=== PATIENT | male | born 1940 | race Caucasian/White ===

== ENCOUNTER 2021-03-31 08:42 | Outpatient (CLI) | payer MEDICARE | END 2021-03-31 08:43 | disposition home or self-care (01) | LOC: CSHMRI 08:42 | PROVIDERS: ATTEND Psychiatry & Neurology Neurology | DX: R41.3 Other amnesia (principal); M47.896 Other spondylosis, lumbar region; R90.82 White matter disease, unspecified; G93.9 Disorder of brain, unspecified; M48.061 Spinal stenosis, lumbar region without neurogenic claudication | CPT/HCPCS: 70551; 72148 ==

== ENCOUNTER 2025-01-16 07:15 | Emergency (ER) | payer OTHER ==
[2025-01-16 08:43] LABS: #Basophils 0.03 10x3/uL (0.0-0.2); #Eosinophils 0.09 10x3/uL (0.0-0.5); #Monocytes 0.39 10x3/uL (0.0-1.1); #Neutrophils 4.38 10x3/uL (1.5-8.4); %Basophils 0.5 % (0.0-2.0); %Eosinophils 1.5 % (0.0-6.0); %Lymphocytes 14.9 % (18.0-47.0); %Monocytes 6.7 % (0.0-10.0); %Neutrophils 75.4 % (40.0-75.0); Hematocrit 48.0 % (38.8-50.0); Hemoglobin 15.1 g/dL (13.5-17.5); Mean Corpuscular Hemoglobin 25.5 pg (27.0-33.0); Mean Corpuscular Volume 81.2 fL (81.2-95.1); Platelet Count 185 10x3/uL (150-450); Red Blood Cell (RBC) Count 5.91 10x6/uL (4.32-5.72); White Blood Cell (WBC) Count 5.82 10x3/uL (3.5-10.5)
[2025-01-16 09:05] LABS: ALT (SGPT) 57 U/L (Less than 45); AST (SGOT) 48 U/L (11-34); Albumin 3.6 g/dL (3.1-4.5); Alkaline Phosphatase 356 U/L (40-110); Anion Gap 13 mmol/L (10-20); BUN (Urea Nitrogen) 15 mg/dL (8.4-25.7); Bilirubin, Total 0.5 mg/dL (0.3-1.2); Calc. Creatinine Clearance 0 mL/min (70-130); Calcium 9.6 mg/dL (7.8-10.44); Carbon Dioxide 26 mmol/L (23-31); Chloride 101 mmol/L (98-107); Globulin 3.4 g/dL (2.4-3.5); Glucose 247 mg/dL (83-110); Lipase 130 U/L (8-78); Potassium 4.1 mmol/L (3.5-5.1); Sodium 136 mmol/L (136-145)
[2025-01-16] MEDS ORDERED: Lidocaine 1% (PF) 30 ML VIAL ONE (11:08)
[2025-01-16] MEDS ORDERED: Iopamidol 300 61% 100 ML VIAL FS ONE (14:10)
== END 2025-01-16 13:19 | disposition home or self-care (01) ==
LOC: CSHERS 07:15
DX: T85.590A Other mechanical complication of bile duct prosthesis, initial encounter (principal); E11.9 Type 2 diabetes mellitus without complications; Z79.4 Long term (current) use of insulin
CPT/HCPCS: 74177; 80053; 83690; 85025; J2003; Q9967